=== PATIENT | male | born 1965 | race Caucasian/White ===

== ENCOUNTER 2024-03-20 09:56 | Inpatient (IN) | payer MEDICARE ==
[2024-03-20 10:38] VITALS: BMI 24.3
[2024-03-20] MEDS: Morphine 2 MG/ML VIAL SLOW IVP PRN (10:48)
[2024-03-20] MEDS ORDERED: Bisacodyl 5 MG TAB PO PRN (10:54)
[2024-03-20] MEDS ORDERED: Acetaminophen 650 MG Suppository PR PRN (10:54)
[2024-03-20] MEDS ORDERED: Senokot S 8.6-50 MG TAB PO PRN (10:54)
[2024-03-20] MEDS ORDERED: Bisacodyl 10 MG SUPP PR PRN (10:54)
[2024-03-20] MEDS ORDERED: Guaifenesin DM 100-10/5 ML UDCUP PO PRN (10:54)
[2024-03-20 12:56] LABS: Troponin I Less than 0.010 ng/mL (< 0.028)
[2024-03-20] MEDS: Ketorolac Tromethamine 30 MG (1 mL) VIAL IVP SCH (13:00)
[2024-03-20] MEDS: Acetaminophen 325 MG TAB PO SCH (13:02)
[2024-03-20] MEDS: Sodium Chloride 0.9% 1,000 ML IV SCH (13:03)
[2024-03-20] MEDS: Meropenem 2 GM in Sodium Chloride 0.9% 100 ML IVPB SCH (13:04)
[2024-03-20] MEDS: Morphine 4 MG/ML VIAL ONE (13:05)
[2024-03-20 13:33] LABS: Bacteria/HPF None Seen HPF (None Seen); Bilirubin Negative (Negative); Blood, Urine Negative (Negative); Clarity Clear (Clear); Glucose, Urine (Dipstick) Normal (Negative); Ketone, Urine Negative (Negative); Leukocyte Negative Leu/uL (Negative); Nitrite Negative (Negative); Protein, Urine (Dipstick) Negative (Neg-Trace); RBC/HPF 0-3 HPF (0-3); Squamous Epithelial 0-3 HPF (0-3); WBC/HPF 0-3 HPF (0-3)
[2024-03-20 13:41] LABS: Specific Gravity, Urine 1.055 (1.002-1.036)
[2024-03-20 13:58] LABS: PTT 123.3 sec (22.9-36.1)
[2024-03-20] MEDS ORDERED: Ondansetron ODT 4 MG TAB PO PRN (14:15)
[2024-03-20] MEDS ORDERED: Lorazepam 2 MG/ML VIAL IM PRN (14:15)
[2024-03-20] MEDS ORDERED: Electrolyte Replacement Protocol 1 EACH FS SCH (14:15)
[2024-03-20] MEDS: Vancomycin (BATCH) 2 GM in Premix 1 BAG IVPB SCH (14:59)
[2024-03-20] MEDS: Thiamine HCl 200 MG/2 ML VIAL SLOW IVP SCH (14:59)
[2024-03-20 16:01] LABS: Troponin I 0.026 ng/mL (< 0.028)
[2024-03-20 17:56] LABS: Amphetamine Not Detected (NotDetected); Barbiturates Screen Not Detected (NotDetected); Benzodiazepine Screen Not Detected (NotDetected); Cocaine Metabolite Screen Not Detected (NotDetected); Methadone Not Detected (NotDetected); Methamphetamine Not Detected (NotDetected); Opiate Screen Detected (NotDetected); Oxycodone Screen Not Detected (NotDetected); Phencyclidine (PCP) Not Detected (NotDetected); THC/Cannabinoid Screen Not Detected (NotDetected); Tricyclic Screen Not Detected (NotDetected)
[2024-03-20] MEDS: Lorazepam 1 MG TAB PO PRN (18:46)
[2024-03-20 20:33] LABS: Troponin I 0.017 ng/mL (< 0.028)
[2024-03-20] MEDS: Meropenem 1 GM in Sodium Chloride 0.9% 100 ML IVPB SCH (22:22)
[2024-03-20] MEDS: Pantoprazole 40 MG VIAL IVP SCH (22:23)
[2024-03-21] MEDS: Vancomycin (BATCH) 1.25 GM in Premix 1 BAG IVPB SCH (02:27)
[2024-03-21 04:56] LABS: Hematocrit 29.5 % (42.0-52.0); Hemoglobin 10.4 g/dL (14.0-18.0); Mean Corpuscular HGB CONC 35.3 g/dL (32.0-36.0); Mean Corpuscular Hemoglobin 38.4 pg (27.0-31.0); Mean Corpuscular Volume 108.9 fL (78.0-98.0); Mean Platelet Volume 10.2 fL (7.4-10.4); Platelet Count 35 10x3/uL (130-400); RBC Distribution Width 15.4 % (11.5-14.5); Red Blood Cell (RBC) Count 2.71 mill/uL (4.70-6.10)
[2024-03-21 04:57] LABS: Phosphorus 3.4 mg/dL (2.3-4.7)
[2024-03-21 05:01] LABS: ALT (SGPT) 33 U/L (8-55); AST (SGOT) 87 U/L (5-34); Albumin 2.5 g/dL (3.5-5.0); Alkaline Phosphatase 80 U/L (40-110); Anion Gap 13 mmol/L (10-20); BUN (Urea Nitrogen) 16 mg/dL (8.4-25.7); Bilirubin, Total 5.2 mg/dL (0.2-1.2); Calc. Creatinine Clearance 94 mL/min (70-130); Calcium 7.3 mg/dL (7.8-10.44); Carbon Dioxide 21 mmol/L (22-29); Chloride 105 mmol/L (98-107); Estimated GFR 92; Globulin 3.8 g/dL (2.4-3.5); Glucose 93 mg/dL (70-105); Magnesium 1.1 mg/dL (1.6-2.6); Potassium 3.6 mmol/L (3.5-5.1); Protein, Total 6.3 g/dL (6.0-8.3); Sodium 135 mmol/L (136-145)
[2024-03-21 05:03] LABS: Vancomycin, Random 46.9 ug/mL (See Comment)
[2024-03-21 05:34] LABS: Anisocytosis SLIGHT = 6-15 cells HPF (0-5); Band 36 % (5-11); Dohle Bodies SLIGHT; Large Platelets 8.2 % (0-5); Lymphocytes 19 % (21-51); Macrocytosis SLIGHT = 6-15 cells HPF (0-5); Metamyelocyte 10 % (0-0); Monocytes 11 % (0-10); Myelocyte 2 % (0-0); Neutrophil 22 % (42-75); Platelet Adequacy Comment Significant Decrease; Polychromasia SLIGHT = 2-3 cells HPF (0-2); Promyelocytes 1 % (0-0); Toxic Granulation MODERATE; Vacuoles SLIGHT
[2024-03-21 08:25] LABS: INR-International Normal Ratio 1.8; Prothrombin Time 21.2 sec (12.0-14.7)
[2024-03-21 08:26] LABS: PTT 40.3 sec (22.9-36.1)
[2024-03-21 08:54] LABS: HBsAg Index 0.47 S/CO (0-0.99); HIV (1/2) Antibody/Antigen NONREACTIVE (NonReactive); HIV 1/2 INDEX 0.05 S/CO (<1.00); Hep A IgM AB NONREACTIVE (NonReactive); Hep B Core IgM Index 0.08 S/CO (0-0.79); Hep B Surf Ag NONREACTIVE S/CO (NonReactive); Hep C IgG Ab NONREACTIVE S/CO (NonReactive); Hep C Index 0.15 S/CO (0-0.79); Hepatitis B Core IgM Abs NONREACTIVE S/CO (NonReactive)
[2024-03-21] MEDS: Folic Acid 1 MG TAB PO SCH (09:02)
[2024-03-21] MEDS: Magnesium Sulfate In Water 4 GM in Premix 1 BAG IVPB SCH (09:02)
[2024-03-21] MEDS: Multivit, Therapeutic 1 TAB PO SCH (09:02)
[2024-03-21 11:42] LABS: Vancomycin, Trough 20.6 ug/mL
[2024-03-21] MEDS ORDERED: Vancomycin HCl 750 MG in Sodium Chloride 0.9% 250 ML 250 ML IVPB SCH (12:00)
[2024-03-21] MEDS: Vancomycin HCl 750 MG in Sodium Chloride 0.9% 250 ML 250 ML IVPB SCH (12:10)
[2024-03-21] MEDS: Vancomycin 1 GM in Premix 1 BAG IVPB SCH (12:14)
[2024-03-21 17:29] LABS: Reflex for Review?? YES
[2024-03-21 19:05] LABS: Bilirubin, Direct 1.9 mg/dL (0.1-0.3); Bilirubin, Total 4.5 mg/dL (0.2-1.2)
[2024-03-21] MEDS: Acetaminophen 325 MG TAB PO PRN (20:40)
[2024-03-21] MEDS: Lorazepam 1 MG TAB PO PRN (23:48)
[2024-03-22 04:43] LABS: Hematocrit 30.2 % (42.0-52.0); Hemoglobin 10.6 g/dL (14.0-18.0); Mean Corpuscular HGB CONC 35.1 g/dL (32.0-36.0); Mean Corpuscular Volume 108.2 fL (78.0-98.0); Platelet Count 45 10x3/uL (130-400); RBC Distribution Width 15.2 % (11.5-14.5); Red Blood Cell (RBC) Count 2.79 mill/uL (4.70-6.10)
[2024-03-22 04:45] LABS: ALT (SGPT) 29 U/L (8-55); AST (SGOT) 76 U/L (5-34); Albumin 2.3 g/dL (3.5-5.0); Alkaline Phosphatase 76 U/L (40-110); Anion Gap 10 mmol/L (10-20); BUN (Urea Nitrogen) 19 mg/dL (8.4-25.7); Bilirubin, Total 4.6 mg/dL (0.2-1.2); Calc. Creatinine Clearance 101 mL/min (70-130); Calcium 7.8 mg/dL (7.8-10.44); Carbon Dioxide 21 mmol/L (22-29); Chloride 106 mmol/L (98-107); Estimated GFR 99; Globulin 3.9 g/dL (2.4-3.5); Glucose 110 mg/dL (70-105); Iron 27 ug/dL (65-175); Iron Binding Capacity, Total 156 mcg/dL (261-462); Potassium 3.6 mmol/L (3.5-5.1); Protein, Total 6.2 g/dL (6.0-8.3); Sodium 133 mmol/L (136-145)
[2024-03-22 04:48] LABS: Vancomycin, Random 14.8 ug/mL (See Comment)
[2024-03-22 05:49] LABS: Anisocytosis SLIGHT = 6-15 cells HPF (0-5); Band 36 % (5-11); Dohle Bodies SLIGHT; Lymphocytes 15 % (21-51); Macrocytosis SLIGHT = 6-15 cells HPF (0-5); Metamyelocyte 2 % (0-0); Monocytes 5 % (0-10); Neutrophil 42 % (42-75); Platelet Adequacy Comment Significant Decrease; Polychromasia SLIGHT = 2-3 cells HPF (0-2); Target Cells SLIGHT = 2-5 cells HPF (0-1); Toxic Granulation SLIGHT; Vacuoles SLIGHT
[2024-03-22] MEDS ORDERED: Magnesium 2 GM/50 ML(in water) 2 GM in Premix 1 BAG IVPB SCH (08:00)
[2024-03-22 08:34] VITALS: BP 130/73; TEMP 99
[2024-03-22] MEDS ORDERED: Lorazepam 1 MG TAB PO PRN (14:17)
[2024-03-23 11:35] LABS: ANA Symphony (Qualitative) Equivocal: See Note (Negative); ANA Symphony (Quantitative) 0.7 Ratio (< 0.7 Negative); EliA Vaculitis New Method **** NEW METHOD ****; Mitochondrial Ab 1.6 U/mL (<4 Negative); dsDNA IgG Antibody 2.6 IU/mL (<10 Negative)
[2024-03-23] MEDS ORDERED: FLU (Fluarix Triv) TS24-25(6MOS UP)/PF 45 MCG/0.5 ML Syringe IM ONE (12:00)
[2024-03-23] MEDS ORDERED: Lorazepam 0.5 MG TAB PO PRN (14:17)
[2024-03-23] MEDS ORDERED: Thiamine 100 MG TAB PO SCH (15:00)
== END 2024-03-22 09:10 | disposition left against medical advice (07) | DRG 313 ==
LOC: 2NO 09:56
PROVIDERS: ADMIT Internal Medicine; ATTEND Internal Medicine
DX: R07.2 Precordial pain (principal); D61.818 Other pancytopenia; K74.60 Unspecified cirrhosis of liver; F10.10 Alcohol abuse, uncomplicated; I10 Essential (primary) hypertension; Z98.890 Other specified postprocedural states; F17.210 Nicotine dependence, cigarettes, uncomplicated; D69.6 Thrombocytopenia, unspecified; Z98.41 Cataract extraction status, right eye; Z98.42 Cataract extraction status, left eye; Z79.899 Other long term (current) drug therapy
CPT/HCPCS: 36415; 74176; 76705; 80053; 80074; 80202; 80306; 81001; 82105; 82247; 82390; 82607; 82728; 83010; 83036; 83516; 83540; 83550; 83615; 83690; 83735; 84100; 85025; 85046; 85060; 85610; 85730; 86015; 86038; 86225; 87040; 87389; 93005; 93010; 93306; J1885; J2183; J2185; J2272; J2470; J3370; J3370-JW; J3411; J3475; J7030